=== PATIENT | female | born 1975 | race Caucasian/White ===

== ENCOUNTER 2018-08-20 01:26 | Outpatient (CLI) | payer BC, SELFPAY ==
--- NOTE | 2018-08-20 16:07 | DI.MRI_ITS ---
SYMPTOMS/DIAGNOSIS: PLANTAR FASCIITIS OF LEFT FOOT, M72.2 MRI OF THE LEFT ANKLE: The study was conducted according to the usual protocol. T1 sagittal, T2 sagittal fat-sat, T1 coronal, T2 coronal fat-sat and T1 axial and T2 axial fat- sat and T2 sagittal 3D pulse sequences were performed. No bony signal abnormality is seen. The flexor and extensor tendons are intact. A small calcaneal spur is noted and there is increased signal and thickening of the plantar fascia at its attachment to the calcaneus. SUMMARY: Findings consistent with plantar fasciitis. The examination is otherwise unremarkable.
== END 2018-08-20 01:46 ==
PROVIDERS: PCP Nurse Practitioner; Visit Provider Specialist
DX: M72.2 Plantar fascial fibromatosis (principal)
CPT/HCPCS: 73721

== ENCOUNTER 2019-03-30 16:15 | Outpatient (REF) | payer BC, SELFPAY ==
[2019-03-30 21:25] LABS: Abs Immature Grans 0.01 k/cumm (0.0-0.09); Absolute Basophil Count 0.01 k/cumm (0.0-0.2); Absolute Eosinophil Count 0.07 k/cumm (0.0-0.7); Absolute Lymphocyte Count 1.97 k/cumm (1.2-3.4); Absolute Monocyte Count 0.53 k/cumm (0.11-0.7); Absolute Neutrophil Count 3.14 k/cumm (1.2-6.7); Basophils % 0.2; Eosinophils % 1.2; HCT 37.4 % (36.0-46.0); HGB 12.3 g/dL (12.0-15.5); Immature Grans % 0.2; Lymphocytes % 34.4; Mean Corp. HGB Concentration 32.9 g/dL (32.0-36.0); Mean Corpuscular Hemoglobin 31.5 pg (27.0-33.0); Mean Corpuscular Volume 95.9 fL (80-95); Mean Platelet Volume 11.5 fL (8.0-11.0); Monocytes % 9.2; Neutrophils % 54.8; Platelet Count 236 x1000/uL (130-400); RBC Distribution Width 11.7 % (11.7-14.6); White Blood Cell Count 5.73 k/cumm (4.4-10.8)
[2019-03-30 21:57] LABS: Calculated LDL 93 mg/dL; Cholesterol 164 mg/dL (50-200); HDL Cholesterol 61 mg/dL (40-60); TSH 1.87 uIU/mL (0.36-3.74); Triglyceride 54 mg/dL (30-150)
[2019-03-30 22:32] LABS: FREE T4 1.02 ng/dL (0.76-1.46); NT-proBNP 115 pg/mL
== END 2019-03-30 16:35 ==
LOC: NCHCN 16:15
PROVIDERS: PCP Internal Medicine; Visit Provider Internal Medicine
DX: R07.9 Chest pain, unspecified (principal); R06.02 Shortness of breath; Z13.220 Encounter for screening for lipoid disorders
CPT/HCPCS: 80061; 83880; 84439; 84443; 85025

== ENCOUNTER 2019-05-07 16:35 | Outpatient (REF) | payer BC, SELFPAY ==
--- NOTE | 2019-05-07 16:00 | PAPFT_PTH ---
PATIENT: Ada Vargas LOC: [facility] U#:[id number] AGE/SX: 43/F ROOM: RE05/07/[address]: Blanche Jiménez : 1975 BED: DIS: 05/07/2019 SPEC #: [id number] RECD: 05/07/19 18:27 STATUS: KAREN REGale #: [id number] JEAN PIERRE: 05/07/19 16:[address]: Blanche Jiménez [facility] Cytology RECD BY: Layne Thornton ENTERED: 05/07/19 18:27 SP TYPE: PAPFT OTHR DR: Kirk Mcmahon Tissues: 1 - CX/ENDOCX FOR PAP SMEARS Procedures: PAP THIN PREP/[facility] Screening HPV DNA PROBE Comments: [id number]
== END 2019-05-07 16:55 ==
LOC: LBN 16:35
PROVIDERS: PCP Internal Medicine; Visit Provider Obstetrics & Gynecology Gynecology
DX: Z12.4 Encounter for screening for malignant neoplasm of cervix (principal)
CPT/HCPCS: 88142; 87624

== ENCOUNTER 2022-11-20 13:19 | Outpatient (REF) | payer BC, SELFPAY ==
[2022-11-20 14:44] LABS: HGB 13.6 g/dL (11.2-15.7); MCH 32.2 pg (27.0-33.0); MCV 95 fL (80-95); Platelet Count 249 10^3/uL (130-400); RBC 4.23 10^6/uL (3.93-5.22); RDW 11.8 % (11.7-14.6); RDW-SD 40.7 fL; WBC 5.27 10^3/uL (4.4-10.8)
[2022-11-20 14:58] LABS: ALT 34 U/L (14-59); AST 18 U/L (15-37); Albumin 3.6 g/dL (3.4-5.0); Alkaline Phosphatase 67 U/L (46-116); Anion Gap 10.1 mmol/L (3-11); BUN 17 mg/dL (7-18); Bilirubin, Total 0.2 mg/dL (0.2-1.0); CO2 26.9 mmol/L (21.0-32.0); CREATININE 0.8 mg/dL (0.55-1.02); Calcium 9.2 mg/dL (8.5-10.1); Calculated LDL 123 mg/dL (<100); Chloride 104 mmol/L (98-107); Cholesterol 206 mg/dL (<200); Glucose 96 mg/dL (74-106); HDL Cholesterol 58 mg/dL (40-60); Potassium 4.5 mmol/L (3.5-5.1); Sodium 141 mmol/L (136-145); Total Protein 7.4 g/dL (6.4-8.2); Triglyceride 125 mg/dL (<150)
[2022-11-20 15:14] LABS: Hemoglobin A1C 5.7 % (<5.7)
== END 2022-11-20 13:20 | disposition home or self-care (01) ==
LOC: NCHCN 13:19
PROVIDERS: PCP Internal Medicine; Visit Provider Nurse Practitioner Family
DX: Z00.00 Encounter for general adult medical examination without abnormal findings (principal)
CPT/HCPCS: 80053; 80061; 85027; 83036

== ENCOUNTER → 2023-06-26 10:26 | Outpatient (CLI) | payer BC, SELFPAY ==
--- NOTE | 2023-06-26 | DI.RAD_ITS ---
Exam(s) XR CHEST 2V PA LATERAL EXAM: XR CHEST 2V PA LATERAL CLINICAL HISTORY: MODERATE PERSISTENT ASTHMA, J45.40 TECHNIQUE: 2D digital imaging was performed. COMPARISON: No exams were available for comparison FINDINGS: HEART: Normal size. Aorta: Not dilated. PULMONARY VASCULATURE: Normal. LUNGS: Clear. PLEURAL SPACE: No pleural effusion or pneumothorax. BONE:Unremarkable for age. Costal cartilage heavily calcified. Soft tissues: Unremarkable. IMPRESSION: No acute abnormality. DATA REPOSITORY: RADIATION DOSE DELIVERED:
== END ==
PROVIDERS: PCP Internal Medicine; Visit Provider Nurse Practitioner Family
DX: J45.40 Moderate persistent asthma, uncomplicated (principal)
CPT/HCPCS: 71046

== ENCOUNTER 2023-11-27 18:50 | Outpatient (REF) | payer BC, SELFPAY ==
[2023-11-27 21:10] LABS: HCT 40.5 % (36.0-46.0); HGB 13.5 g/dL (11.2-15.7); MCH 31.5 pg (27.0-33.0); MCHC 33.3 % (32.0-36.0); MCV 95 fL (80-95); MPV 10.6 fL (8.0-11.0); Platelet Count 275 10^3/uL (130-400); RBC 4.28 10^6/uL (3.93-5.22); RDW 11.7 % (11.7-14.6); RDW-SD 40.2 fL; WBC 7.55 10^3/uL (4.4-10.8)
[2023-11-27 21:28] LABS: Hemoglobin A1C 5.7 % (<5.7)
[2023-11-27 21:48] LABS: ALT 150 U/L (14-59); AST 47 U/L (15-37); Albumin 3.9 g/dL (3.4-5.0); Alkaline Phosphatase 78 U/L (46-116); Anion Gap 7.4 mmol/L (3-11); BUN 14 mg/dL (7-18); Bilirubin, Total 0.28 mg/dL (0.2-1.0); CO2 29.6 mmol/L (21.0-32.0); CREATININE 0.9 mg/dL (0.55-1.02); Calcium 9.6 mg/dL (8.5-10.1); Calculated LDL 140 mg/dL (<100); Chloride 102 mmol/L (98-107); Cholesterol 217 mg/dL (<200); Estimated GFR 78.86 (mL/min/1.73m2); Glucose 95 mg/dL (74-106); HDL Cholesterol 60 mg/dL (40-60); Potassium 4.2 mmol/L (3.5-5.1); Sodium 139 mmol/L (136-145); Total Protein 7.3 g/dL (6.4-8.2); Triglyceride 88 mg/dL (<150)
== END 2023-11-27 18:51 | disposition home or self-care (01) ==
LOC: NCHCN 18:50
PROVIDERS: PCP Internal Medicine; Visit Provider Nurse Practitioner Family
DX: Z00.00 Encounter for general adult medical examination without abnormal findings (principal); R73.03 Prediabetes; Z13.220 Encounter for screening for lipoid disorders
CPT/HCPCS: 80053; 80061; 85027; 83036

== ENCOUNTER 2023-12-02 16:18 | Outpatient (REF) | payer BC, SELFPAY ==
[2023-12-03 00:27] LABS: Hepatitis A Antibody IgM Negative (Negative); Hepatitis B Core Antibody Negative (Negative); Hepatitis B surface Ag Negative (Negative); Hepatitis C Ab w Rflx HCV PCR Negative (Negative)
[2023-12-04 22:37] LABS: HBs Antibody, Quant <3.1 mIU/mL (See Note); Hepatitis B Surface Ab Negative (See Note)
== END 2023-12-02 16:19 | disposition home or self-care (01) ==
LOC: NCHCN 16:18
PROVIDERS: PCP Nurse Practitioner Family; Visit Provider Nurse Practitioner Family
DX: R74.01 Elevation of levels of liver transaminase levels (principal)
CPT/HCPCS: 86704; 86706; 86709; 86803; 87340

== ENCOUNTER 2023-12-09 16:08 | Outpatient (REF) | payer BC, SELFPAY ==
--- NOTE | 2023-12-09 15:45 | PAPFT_PTH ---
PATIENT: Ada Vargas LOC: [facility] U#:[id number] AGE/SX: 48/F ROOM: RE12/09/[address]: Blanche Jiménez : 1975 BED: DIS: 12/09/2023 SPEC #: [id number] RECD: 12/09/23 18:30 STATUS: KAREN REQ #: [id number] JEAN PIERRE: 12/09/23 15:[address]: Blanche Jiménez DEPT: [facility] Cytology RECD BY: Layne Thornton ENTERED: 12/09/23 18:31 SP TYPE: PAPFT OTHR DR: Danielle Lincoln Tissues: 1 - CX/ENDOCX FOR PAP SMEARS Procedures: PAP THIN PREP/[facility] Screening HPV DNA PROBE Comments: [id number] (HPV 16 & 18/45)
== END 2023-12-09 16:09 | disposition home or self-care (01) ==
LOC: LBN 16:08
PROVIDERS: PCP Nurse Practitioner Family; Visit Provider Obstetrics & Gynecology Gynecology
DX: Z01.419 Encounter for gynecological examination (general) (routine) without abnormal findings (principal); R79.89 Other specified abnormal findings of blood chemistry; Z30.015 Encounter for initial prescription of vaginal ring hormonal contraceptive
CPT/HCPCS: 88142; 87624

== ENCOUNTER → 2023-12-13 00:17 | Outpatient (CLI) | payer BC, SELFPAY ==
--- NOTE | 2023-12-13 10:32 | DI.MAMMO_ITS ---
Exam(s) MAMMO SCREENING EXAM: MAMMO SCREENING CLINICAL HISTORY: Screening, Z12.39 TECHNIQUE: Mammograms were interpreted according to the usual protocol including computer analysis w [employer] CAD system, tomosynthesis and C-view imaging. COMPARISON: None. Baseline examination. FINDINGS: The breasts are composed of heterogeneously dense fibroglandular densities, Breast Density category C . No suspicious masses or suspicious microcalcifications are seen. No skin thickening or abnormal axillary lymph nodes are seen. IMPRESSION: BI-RADS Category 1, Negative mammogram. Yearly screening mammography is recommended. Breast Density Category C, heterogeneously Dense. The mammogram demonstrates the patient's breast tissue is dense. Dense breast tissue is very common a nd is not abnormal but dense breast tissue can make it harder to find cancer on a mammogram. Also, de nse breast tissue may increase breast cancer risk. This information about the result of the mammogram report was provided to the patient to raise their awareness. Use this report when you speak with the patient about their risks for breast cancer, which includes their family history. At that time, you may recommend additional screening tests (Ultrasound or MRI) as they might be useful based on their r isk. A negative radiographic report should not delay biopsy if a dominant or clinically suspicious mass is present. Up to ten percent of cancers are not identified on mammography. A negative report may reinforce clinical impression. Adenosis and dense breasts may obscure an underlying neoplasm. False positive reports average 6 to 10%.
== END ==
PROVIDERS: PCP Nurse Practitioner Family; Visit Provider Obstetrics & Gynecology Gynecology
DX: Z12.39 Encounter for other screening for malignant neoplasm of breast (principal); Z12.31 Encounter for screening mammogram for malignant neoplasm of breast; R92.333 Mammographic heterogeneous density, bilateral breasts
CPT/HCPCS: 77063; 77067

== ENCOUNTER 2024-03-18 05:09 | Outpatient (CLI) | payer BC, SELFPAY ==
[2024-03-18 19:32] LABS: ALT 38 U/L (14-59); AST 18 U/L (15-37)
== END 2024-03-18 05:10 | disposition home or self-care (01) ==
LOC: LBO 05:10
PROVIDERS: PCP Nurse Practitioner Family; Visit Provider Nurse Practitioner Family
DX: R74.01 Elevation of levels of liver transaminase levels (principal)
CPT/HCPCS: 36415; 84450; 84460

== ENCOUNTER 2025-05-05 10:35 | Outpatient (REF) | payer BC, SELFPAY ==
[2025-05-05 15:51] LABS: HCT 40.1 % (36.0-46.0); HGB 13.2 g/dL (11.2-15.7); MCH 31.7 pg (27.0-33.0); MCHC 32.9 % (32.0-36.0); MCV 96 fL (80-95); MPV 10.7 fL (8.0-11.0); Platelet Count 242 10^3/uL (130-400); RBC 4.17 10^6/uL (3.93-5.22); RDW 11.6 % (11.7-14.6); RDW-SD 40.9 fL; WBC 5.22 10^3/uL (4.4-10.8)
[2025-05-05 16:14] LABS: ALT 18 U/L (10-49); AST 16 U/L (<34); Albumin 4.5 g/dL (3.2-5.0); Alkaline Phosphatase 73 U/L (46-116); Anion Gap 7 mmol/L (3-11); BUN 15 mg/dL (9-23); Bilirubin, Total 0.40 mg/dL (0.2-1.2); CO2 30.0 mmol/L (20.0-31.0); Calcium 9.2 mg/dL (8.3-10.6); Chloride 104 mmol/L (98-107); Glucose 93 mg/dL (74-106); Potassium 4.5 mmol/L (3.5-5.1); Sodium 141 mmol/L (136-145); Total Protein 7.0 g/dL (5.7-8.2)
[2025-05-05 19:39] LABS: Hemoglobin A1C 5.6 % (<5.7)
== END 2025-05-05 10:36 | disposition home or self-care (01) ==
LOC: NCHCN 10:35
PROVIDERS: PCP Nurse Practitioner Family; Visit Provider Nurse Practitioner Family
DX: R73.03 Prediabetes (principal); Z00.00 Encounter for general adult medical examination without abnormal findings
CPT/HCPCS: 80053; 85027; 83036